=== PATIENT | male | born 1970 | race Caucasian/White ===

== ENCOUNTER 2020-04-18 10:04 | Emergency (ER) | payer MEDICAID ==
[~2020-04-18] VITALS: Ht 182.9 cm; Wt 117.3 kg
[2020-04-18 10:10] VITALS: BP 166/102
== END 2020-04-18 11:06 | disposition home or self-care (01) ==
LOC: ED 11:00
DX: L03.311 Cellulitis of abdominal wall (principal); R21 Rash and other nonspecific skin eruption; Z90.89 Acquired absence of other organs
CPT/HCPCS: 99283